=== PATIENT | female | born 1995 | race Caucasian/White ===

== ENCOUNTER 2019-03-08 13:45 | Emergency (ER) | payer OTHER, SELFPAY ==
[2019-03-08 14:56] LABS: Urine Blood NEGATIVE (NEG); Urine Glucose NEGATIVE (NEG); Urine Protein NEGATIVE (NEG); Urine Specific Gravity >1.030 (1.005-1.030)
[2019-03-08] MEDS ORDERED: NA CHLORIDE 0.9% 1,000 ML ONE (15:37)
[2019-03-08] MEDS ORDERED: FENTANYL CITR 100 MCG/2 ML ONE (15:37)
[2019-03-08] MEDS ORDERED: FAMOTIDINE 20 MG/2 ML VIAL IV ONE (15:37)
[2019-03-08] MEDS ORDERED: ONDANSETRON 4 MG/2 ML VIAL ONE (15:37)
[2019-03-08 15:51] LABS: Absolute Lymphocytes (CBC) 2.6 K/uL (0.7-4.9); Basophils % 0.6 % (0-1.3); Hematocrit 40.5 % (36.0-45.0); Lymphocytes % 30.2 % (15.3-44.8); MPV 9.6 fL (7.6-11.3); RBC Red Blood Cell Count 4.81 M/uL (3.86-4.86)
[2019-03-08 16:04] LABS: Albumin 4.2 g/dL (3.4-5.0); Bilirubin Direct 0.1 mg/dL (0-0.2); Bilirubin Total 0.4 mg/dL (0.2-1.0); Potassium 3.9 mmol/L (3.5-5.1); Protein, Total 8.4 g/dL (6.4-8.2)
--- NOTE | 2019-03-08 18:02 | RAD REPORT ---
EXAM DESCRIPTION: CT - Abdomen Pelvis W Contrast - 03/08/2019 5:46 pm CLINICAL HISTORY: Abdominal pain. COMPARISON: None. TECHNIQUE: Computed axial tomography of the abdomen and pelvis was obtained. 100 cc Isovue-300 is ad ministered intravenously. Oral contrast was given. All CT scans are performed using dose optimization technique as appropriate and may include automated exposure control or mA/KV adjustment according to patient size. FINDINGS: The liver, spleen, pancreas, adrenals and kidneys appear unremarkable. The appendix is normal caliber. There is no evidence of diverticulitis The wall of the terminal ileum appears mildly thickened. 2 centimeter left ovarian cyst without signi ficant free fluid Tiny umbilical hernia. Postsurgical changes involve the stomach IMPRESSION: Mild thickening of the wall of the terminal ileum may indicate inflammation 2 centimeter left ovarian cyst without significant free fluid
--- NOTE | 2019-03-08 18:05 | RAD REPORT ---
EXAM DESCRIPTION: US - Abdomen Exam Limited - 03/08/2019 4:01 pm CLINICAL HISTORY: Abdominal pain. COMPARISON: None. FINDINGS: The gallbladder wall is not thickened. A gallstone is not seen. A small amount of gallbla dder sludge The biliary tree is normal caliber. IMPRESSION: Small amount of gallbladder sludge
--- NOTE | 2019-03-08 18:19 | ER ---
Nurse's Notes [facility] Name: Rachell Molina Age: 23 yrs Sex: Female : 1995 Arrival Date: 03/08/2019 Time: 13:46 Bed 20 Private MD: Diagnosis: Abdominal tenderness-BILIARY COLIC;Other and unspecified noninfective gastroenteritis and colitis-RIGHT SIDED MILD COLITIS, CECUM Presentation: 03/08 14:28 Presenting complaint: Patient states: Epigastric pain for the past couple weeks, aj1 reports that the pain has been getting more and more constant. Patient also reports lower abdominal pain and midback pain. Denies N/V/D. Transition of care: patient was not received from another setting of care. Onset of symptoms was January 2019. Risk Assessment: Do you want to hurt yourself or someone else? Patient reports no desire to harm self or others. Initial Sepsis Screen: Does the patient meet any 2 criteria? No. Patient's initial sepsis screen is negative. Does the patient have a suspected source of infection? Yes: Acute abdominal pain. Care prior to arrival: None. 14:28 Method Of Arrival: Ambulatory aj 14:28 Acuity: ELIZABETH 3 aj1 Triage Assessment: 14:29 General: Appears in no apparent distress. comfortable, Behavior is calm, cooperative, aj1 appropriate for age. Pain: Complains of pain in epigastric area, right lower quadrant and left lower quadrant Pain currently is 3 out of 10 on a pain scale. Neuro: Level of Consciousness is awake, alert, obeys commands. Cardiovascular: Patient's skin is warm and dry. Respiratory: Airway is patent Respiratory effort is even, unlabored, Respiratory pattern is regular, symmetrical. GI: Reports lower abdominal pain, upper abdominal pain, Patient currently denies diarrhea, nausea, vomiting. 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 - Social history:: Smoking status: . - Ebola Screening: : Patient denies travel to an Ebola-affected area in the 21 days before illness onset. Screenin:18 Abuse screen: Denies threats or abuse. Nutritional screening: No deficits noted. tw2 Tuberculosis screening: No symptoms or risk factors identified. Fall Risk None identified. Assessment: 14:38 General: Appears in no apparent distress. well groomed, Behavior is calm, cooperative, tw2 appropriate for age. Pain: Complains of pain in epigastric area, right upper quadrant and right lower quadrant. Neuro: Level of Consciousness is awake, alert, obeys commands, Oriented to person, place, time, situation. Cardiovascular: Heart tones S1 S2 Patient's skin is warm and dry. Respiratory: Airway is patent Respiratory effort is even, unlabored, Respiratory pattern is regular, symmetrical, Breath sounds are clear bilaterally. GI: Abdomen is flat, non-distended, Bowel sounds present X 4 quads. Abd is soft X 4 quads Reports lower abdominal pain, upper abdominal pain, nausea. : No signs and/or symptoms were reported regarding the genitourinary system. EENT: No signs and/or symptoms were reported regarding the EENT system. Derm: No signs and/or symptoms reported regarding the dermatologic system. Musculoskeletal: Range of motion: intact in all extremities. 15:19 Reassessment: Dr. Martines at bedside at this time. tw2 16:37 Reassessment: Patient appears in no apparent distress at this time. No changes from tw2 previously documented assessment. Patient and/or family updated on plan of care and expected duration. Pain level reassessed. Patient is alert, oriented x 3, equal unlabored respirations, skin warm/dry/pink. 18:04 Reassessment: Patient appears in no apparent distress at this time. No changes from tw2 previously documented assessment. Patient and/or family updated on plan of care and expected duration. Pain level reassessed. Patient is alert, oriented x 3, equal unlabored respirations, skin warm/dry/pink. Patient states feeling better. Patient states symptoms have improved. 19:08 Reassessment: Patient appears in no apparent distress at this time. Patient and/or cc3 family updated on plan of care and expected duration. Pain level reassessed. Patient is alert, oriented x 3, equal unlabored respirations, skin warm/dry/pink. Received this female patient from morning shift SHIV Jain as a case of epigastric pain, with IV cannula gauge 20 at the right ACV with ongoing IV antibiotic Flagyl 500 mg, for discharge home after the IV antibiotic as endorsed. Patient denies pain at this time. General: Appears in no apparent distress. comfortable, Behavior is calm, cooperative, appropriate for age. Pain: Denies pain. Neuro: Level of Consciousness is awake, alert, obeys commands, Oriented to person, place, time, situation, Appropriate for age. Cardiovascular: Denies chest pain, Capillary refill < 3 seconds Patient's skin is warm and dry. Respiratory: Airway is patent Respiratory effort is even, unlabored, Respiratory pattern is regular, symmetrical. GI: Abdomen is flat, non-distended. : No signs and/or symptoms were reported regarding the genitourinary system. EENT: No signs and/or symptoms were reported regarding the EENT system. Derm: Skin is intact, is healthy with good turgor, Skin is pink, warm \T\ dry. normal. Musculoskeletal: Circulation, motion, and sensation intact. Range of motion: intact in all extremities. 19:35 Reassessment: Patient appears in no apparent distress at this time. Patient and/or cc3 family updated on plan of care and expected duration. Pain level reassessed. Patient is alert, oriented x 3, equal unlabored respirations, skin warm/dry/pink. Dr. Martines discharged the patient home with prescriptions given. IV cannula removed and patient left ER vitally stable and ambulatory. No valuables left in the patient's room. Patient denies pain at this time. Patient states feeling better. Patient states symptoms have improved. Vital Signs: 14:29 BP 138 / 76; Pulse 74; Resp 18; Temp 98.0; Pulse Ox 98% on R/A; Weight 79.83 kg (R); aj1 Height 5 ft. 5 in. (165.10 cm) (R); 16:38 BP 92 / 80; Pulse 67; Resp 17; Pulse Ox 95% on R/A; tw2 17:20 BP 110 / 69; Pulse 53; Resp 17; Pulse Ox 100% on R/A; tw2 18:04 BP 146 / 76; Pulse 82; Resp 17; Pulse Ox 98% on R/A; tw2 19:11 BP 105 / 66; Pulse 61; Resp 16 S; Temp 98.4(O); Pulse Ox 98% on R/A; Pain 0/10; cc3 14:29 Body Mass Index 29.29 (79.83 kg, 165.10 cm) [facility] ED Course: 13:46 Patient arrived in ED. as 14:29 Triage completed. aj1 14:29 Arm band placed on Patient placed in waiting room, Patient notified of wait time. aj1 14:38 Bed in low position. Call light in reach. Adult w/ patient. Pulse ox on. NIBP on. tw2 14:48 Jaylen Martines MD is Attending Physician. [facility] 14:57 Urine --Ancillary (enter results) Sent. [facility] 14:57 Urine Dipstick--Ancillary (enter results) Sent. [facility] 15:15 Susy Candelario, SHIV is Primary Nurse. tw2 15:41 Initial lab(s) drawn, by ky, sent to lab. Inserted saline lock: 20 gauge in right [facility] antecubital area, using aseptic technique. Blood collected. 15:44 Basic Metabolic Panel Sent. [facility] 15:44 CBC with Diff Sent. [facility] 15:44 Creatinine for Radiology Sent. [facility] 15:44 Hepatic Function Sent. [facility] 15:44 Lipase Sent. [facility] 16:02 US Abdomen Limited In Process Unspecified. EDMS 17:47 CT completed. Patient tolerated procedure well. Patient moved to CT. Patient moved back nc from CT. 17:50 CT Abd/Pelvis - PO and IV Contrast In Process Unspecified. EDMI 18:16 Christiano Allen MD is Referral Physician. [facility] 18:17 Una Asencio MD is Referral Physician. [facility] 19:03 Awaiting: completion of IV medication PRIOR to discharge. tw2 19:03 Report given to SHIV Carl - pending completion of IV abx and discontinue iv once tw2 complete. 19:35 No provider procedures requiring assistance completed. IV discontinued, intact, cc3 bleeding controlled, No redness/swelling at site. Pressure dressing applied. Administered Medications: 15:36 Drug: Pepcid 20 mg Route: IVP; Site: right antecubital; tw2 16:39 Follow up: Response: No adverse reaction tw2 15:38 Drug: Zofran 4 mg Route: IVP; Site: right antecubital; tw2 16:39 Follow up: Response: No adverse reaction; Nausea is decreased tw2 15:40 Drug: fentaNYL (PF) 25 mcg Route: IVP; Site: right antecubital; tw2 16:38 Follow up: Response: No adverse reaction; RASS: Alert and Calm (0) tw2 15:42 Drug: NS 0.9% 1000 ml Route: IV; Rate: 1 bolus; Site: right antecubital; tw2 18:42 CANCELLED (Duplicate Order): Cipro 400 mg 200 ml IVPB once over 60 mins jl7 18:51 Drug: Flagyl 500 mg Volume: 100 ml; Route: IVPB; Rate: 200 ml/hr; Infused Over: 30 tw2 mins; Site: right antecubital; 19:30 Follow up: Response: No adverse reaction; IV Status: Completed infusion; IV Intake: cc3 100ml 18:51 Drug: Cipro 500 mg Route: PO; tw2 18:59 Follow up: Response: No adverse reaction tw2 Intake: 19:30 IV: 100ml; Total: 100ml. cc3 Outcome: 18:18 Discharge ordered by MD. sanders 19:35 Discharged to home ambulatory. cc3 19:35 Condition: stable 19:35 Discharge instructions given to patient, Instructed on discharge instructions, follow up and referral plans. medication usage, Demonstrated understanding of instructions, follow-up care, medications, Prescriptions given X 5 19:37 Patient left the ED. cc3 Signatures: Dispatcher [employer] EDMS Sharon Esparza RN RN aj1 Jaylen Martines MD MD cha Martinez, Amelia as Wise, Tara, RN RN tw2 Gio Goins Maria [facility] Meseret Islas cc3 Tila Gil RN jl7
--- NOTE | 2019-03-08 18:19 | EDPHYS ---
Physician Documentation [facility] Name: Rachell Molina Age: 23 yrs Sex: Female : 1995 Arrival Date: 03/08/2019 Time: 13:46 Bed 20 Private MD: ED Physician Jaylen Martines HPI: 03/08 15:25 This 23 yrs old Female presents to ER via Ambulatory with complaints of marilyn Epigastric Pain, Abdominal Pain. 15:25 The patient presents with abdominal pain in the epigastric area, in the upper abdomen, marilyn abdominal distention in the epigastric area. Onset: The symptoms/episode began/occurred 2 day(s) ago. The symptoms do not radiate. Associated signs and symptoms: none. Modifying factors: The symptoms are alleviated by nothing, the symptoms are aggravated by food, movement. Severity of pain: At its worst the pain was mild moderate in the emergency department the pain is unchanged. The patient has not experienced similar symptoms in the past. 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 - Social history:: Smoking status: . - Ebola Screening: : Patient denies travel to an Ebola-affected area in the 21 days before illness onset. ROS: 15:26 Constitutional: Negative for fever, chills, and weight loss, Eyes: Negative for injury, marilyn pain, redness, and discharge, ENT: Negative for injury, pain, and discharge, Neck: Negative for injury, pain, and swelling, Cardiovascular: Negative for chest pain, palpitations, and edema, Respiratory: Negative for shortness of breath, cough, wheezing, and pleuritic chest pain, Back: Negative for injury and pain, : Negative for injury, bleeding, discharge, and swelling, MS/Extremity: Negative for injury and deformity, Skin: Negative for injury, rash, and discoloration, Neuro: Negative for headache, weakness, numbness, tingling, and seizure, Psych: Negative for depression, anxiety, suicide ideation, homicidal ideation, and hallucinations, Allergy/Immunology: Negative for hives, rash, and allergies, Endocrine: Negative for neck swelling, polydipsia, polyuria, polyphagia, and marked weight changes, Hematologic/Lymphatic: Negative for swollen nodes, abnormal bleeding, and unusual bruising. 15:26 Abdomen/GI: Positive for abdominal pain, of the epigastric area, right upper quadrant and left upper quadrant. Exam: 15:26 Constitutional: This is a well developed, well nourished patient who is awake, alert, marilyn and in no acute distress. Head/Face: Normocephalic, atraumatic. Eyes: Pupils equal round and reactive to light, extra-ocular motions intact. Lids and lashes normal. Conjunctiva and sclera are non-icteric and not injected. Cornea within normal limits. Periorbital areas with no swelling, redness, or edema. ENT: Nares patent. No nasal discharge, no septal abnormalities noted. Tympanic membranes are normal and external auditory canals are clear. Oropharynx with no redness, swelling, or masses, exudates, or evidence of obstruction, uvula midline. Mucous membranes moist. Neck: Trachea midline, no thyromegaly or masses palpated, and no cervical lymphadenopathy. Supple, full range of motion without nuchal rigidity, or vertebral point tenderness. No Meningismus. Chest/axilla: Normal chest wall appearance and motion. Nontender with no deformity. No lesions are appreciated. Cardiovascular: Regular rate and rhythm with a normal S1 and S2. No gallops, murmurs, or rubs. Normal PMI, no JVD. No pulse deficits. Respiratory: Lungs have equal breath sounds bilaterally, clear to auscultation and percussion. No rales, rhonchi or wheezes noted. No increased work of breathing, no retractions or nasal flaring. Back: No spinal tenderness. No costovertebral tenderness. Full range of motion. Skin: Warm, dry with normal turgor. Normal color with no rashes, no lesions, and no evidence of cellulitis. MS/ Extremity: Pulses equal, no cyanosis. Neurovascular intact. Full, normal range of motion. Neuro: Awake and alert, GCS 15, oriented to person, place, time, and situation. Cranial nerves II-XII grossly intact. Motor strength 5/5 in all extremities. Sensory grossly intact. Cerebellar exam normal. Normal gait. Psych: Awake, alert, with orientation to person, place and time. Behavior, mood, and affect are within normal limits. 15:26 Abdomen/GI: Inspection: abdomen appears normal, distension, Bowel sounds: normal, Palpation: mild abdominal tenderness, moderate abdominal tenderness, in the epigastric area, right upper quadrant and left upper quadrant. Vital Signs: 14:29 BP 138 / 76; Pulse 74; Resp 18; Temp 98.0; Pulse Ox 98% on R/A; Weight 79.83 kg (R); aj1 Height 5 ft. 5 in. (165.10 cm) (R); 16:38 BP 92 / 80; Pulse 67; Resp 17; Pulse Ox 95% on R/A; tw2 17:20 BP 110 / 69; Pulse 53; Resp 17; Pulse Ox 100% on R/A; tw2 18:04 BP 146 / 76; Pulse 82; Resp 17; Pulse Ox 98% on R/A; tw2 19:11 BP 105 / 66; Pulse 61; Resp 16 S; Temp 98.4(O); Pulse Ox 98% on R/A; Pain 0/10; cc3 14:29 Body Mass Index 29.29 (79.83 kg, 165.10 cm) aj1 MDM: 14:48 Patient medically screened. [facility] 15:27 Data reviewed: vital signs, nurses notes, lab test result(s), radiologic studies. [facility] 03/08 14:51 Order name: Urine Dipstick--Ancillary (enter results); Complete Time: 15:23 03/08 14:51 Order name: Urine --Ancillary (enter results); Complete Time: 15:23 03/08 15:24 Order name: Basic Metabolic Panel; Complete Time: 17:28 [facility] 03/08 15:24 Order name: CBC with Diff; Complete Time: 17:28 [facility] 03/08 15:24 Order name: Creatinine for Radiology; Complete Time: 17:28 [facility] 03/08 15:24 Order name: Hepatic Function; Complete Time: 17:28 [facility] 03/08 15:24 Order name: Lipase; Complete Time: 17:28 [facility] 03/08 15:24 Order name: US Abdomen Limited; Complete Time: 18:12 [facility] 03/08 15:24 Order name: CT Abd/Pelvis - PO and IV Contrast; Complete Time: 18:12 [facility] 03/08 15:24 Order name: IV Saline Lock; Complete Time: 15:42 [facility] 03/08 15:24 Order name: Labs collected and sent; Complete Time: 15:42 marilyn Administered Medications: 15:36 Drug: Pepcid 20 mg Route: IVP; Site: right antecubital; tw2 16:39 Follow up: Response: No adverse reaction tw2 15:38 Drug: Zofran 4 mg Route: IVP; Site: right antecubital; tw2 16:39 Follow up: Response: No adverse reaction; Nausea is decreased tw2 15:40 Drug: fentaNYL (PF) 25 mcg Route: IVP; Site: right antecubital; tw2 16:38 Follow up: Response: No adverse reaction; RASS: Alert and Calm (0) tw2 15:42 Drug: NS 0.9% 1000 ml Route: IV; Rate: 1 bolus; Site: right antecubital; tw2 18:42 CANCELLED (Duplicate Order): Cipro 400 mg 200 ml IVPB once over 60 mins jl7 18:51 Drug: Flagyl 500 mg Volume: 100 ml; Route: IVPB; Rate: 200 ml/hr; Infused Over: 30 tw2 mins; Site: right antecubital; 19:30 Follow up: Response: No adverse reaction; IV Status: Completed infusion; IV Intake: cc3 100ml 18:51 Drug: Cipro 500 mg Route: PO; tw2 18:59 Follow up: Response: No adverse reaction tw2 Disposition: 03/08/19 18:18 Discharged to Home. Impression: Abdominal tenderness - BILIARY COLIC, Other and unspecified noninfective gastroenteritis and colitis - RIGHT SIDED MILD COLITIS, CECUM. - Condition is Stable. - Discharge Instructions: Abdominal Pain, Adult, Biliary Colic, Adult, Abdominal Pain, Adult, [id number], Colitis. - Prescriptions for Bentyl 20 mg Oral Tablet - take 1 tablet by ORAL route every 6 hours As needed; 20 tablet. Flagyl 500 mg Oral Tablet - take 1 tablet by ORAL route every 8 hours for 7 days; 21 tablet. Pepcid 20 mg Oral Tablet - take 1 tablet by ORAL route every 12 hours for 10 days; 20 tablet. Zofran 4 mg Oral Tablet - take 1 tablet by ORAL route every 12 hours As needed; 20 tablet. Cipro 500 mg Oral Tablet - take 1 tablet by ORAL route every 12 hours for 7 days; 14 tablet. - Medication Reconciliation Form, Thank You Letter, Antibiotic Education, Prescription Opioid Use form. - Follow up: Private Physician; When: 2 - 3 days; Reason: Recheck today's complaints, Continuance of care, Re-evaluation by your physician. Follow up: Christiano Allen MD; When: 2 - 3 days; Reason: Recheck today's complaints, Re-evaluation by your physician. Follow up: Una Asencio MD; When: 2 - 3 days; Reason: Recheck today's complaints, Continuance of care, Re-evaluation by your physician. - Problem is new. - Symptoms have improved. Signatures: Dispatcher [employer] EDMS Sharon Esparza RN RN aj1 Jaylen Martines MD MD cha Wise, Tara RN RN tw2 Tila Gil RN RN jl7 Meseret Islas3 Corrections: (The following items were deleted from the chart) 18:42 18:14 Cipro 400 mg 200 ml IVPB once over 60 mins ordered. marilyn monzon 19:37 18:18 03/08/2019 18:18 Discharged to Home. Impression: Abdominal tenderness - BILIARY cc3 COLIC; Other and unspecified noninfective gastroenteritis and colitis - RIGHT SIDED MILD COLITIS, CECUM. Condition is Stable. Forms are Medication Reconciliation Form, Thank You Letter, Antibiotic Education, Prescription Opioid Use. Follow up: Private Physician; When: 2 - 3 days; Reason: Recheck today's complaints, Continuance of care, Re-evaluation by your physician. Follow up: Christiano Allen; When: 2 - 3 days; Reason: Recheck today's complaints, Re-evaluation by your physician. Follow up: Una Asencio; When: 2 - 3 days; Reason: Recheck today's complaints, Continuance of care, Re-evaluation by your physician. Problem is new. Symptoms have improved. marilyn
[2019-03-08] MEDS ORDERED: METRONIDAZOLE 500mg IVPB 500 MG/100 ML BAG IV ONE (18:44)
[2019-03-08] MEDS ORDERED: CIPROFLOXACIN HCL 500 MG TAB ONE (18:44)
[2019-03-08 20:35] VITALS: O2SAT 98
[2019-03-08 20:36] VITALS: BP 105/66; TEMP 98.4
== END 2019-03-08 19:37 | disposition home or self-care (01) ==
LOC: ER 13:45
DX: K52.9 Noninfective gastroenteritis and colitis, unspecified (principal)
CPT/HCPCS: 36415; 74177; 76705; 80048; 80076; 81003; 81025; 83690; 85025; 96365; 96375; 99284; J2405; J3010; J7030; Q9967

== ENCOUNTER 2020-01-23 16:36 | Emergency (ER) | payer OTHER, SELFPAY ==
--- OUTSIDE RECORDS SUMMARY | 2020-01-23 16:38 | XMS REPORT | Continuity of Care Document ---
:1995 Author Organization Formerly [facility] t Address [address] [place] [address] Care Team Providers Name Role Phone Unavailable Unavailable Unavailable Payers Payer Name Policy Type Policy Number Effective Date Expiration Date S ource Problems This patient has no known problems. Allergies, Adverse Reactions, Alerts Allergy Allergy Status Severity Reaction(s) Onset Inactive Treating Comm ents Source Name Type Date Date Clinician No Known DA Active [facility] [place] Medications This patient has no known medications. Procedures This patient has no known procedures. Results Test Description Test Time Test Comments Results Result Comments Source AG HEPATITIS B SURFACE 2020-01-17 09:01:00 Test Item Value Reference Range Interpretation Comme nts AG HEPATITIS B SURFACE (test code = HBSAG) NONREACTIVE NONREACTIVE IS CONSENT FORM SIGNED FOR HIV TESTING? YAB HEPATITIS C [id number] 09:01:00 Test Item Value Reference Range Interpretation Comments AB HEPATITIS C (test code = NONREACTIVE NONREACTIVE HCVAB) SIGNAL TO CUTOFF (test code = 0.04 <0.80 N CUTOFF) IS CONSENT FORM SIGNED FOR HIV TESTING? YAB [id number] 09:01:00 Test Item Value Reference Range Interpretation Comments AB TREPONEMA (test code = TREPAB) NONREACTIVE NONREACTIVE IS CONSENT FORM SIGNED FOR HIV TESTING? YAB HIV 1 09:01:00 Test Item Value Reference Range Interpretation Comments AB HIV 1 2 (test NONREACTIVE NONREACTIVE [facility] = [id number]) 4th Gen HIV Ag/Ab Combo Screen IS CONSENT FORM SIGNED FOR HIV TESTING? YAG HEPATITIS B [id number] 08:54:00 Test Item Value Reference Range Interpretation Comments AG HEPATITIS B SURFACE (test code NONREACTIVE NONREACTIVE = HBSAG) IS CONSENT FORM SIGNED FOR HIV TESTING? YAB HEPATITIS C [id number] 08:54:00 Test Item Value Reference Range Interpretation Comments AB HEPATITIS C (test code = HCVAB) NONREACTIVE SIGNAL TO CUTOFF (test code = CUTOFF) <0.80 IS CONSENT FORM SIGNED FOR HIV TESTING? YAB [id number] 08:54:00 Test Item Value Reference Range Interpretation Comments AB TREPONEMA (test code = TREPAB) NONREACTIVE NONREACTIVE IS CONSENT FORM SIGNED FOR HIV TESTING? YAB HIV 1 08:54:00 Test Item Value Reference Range Interpretation Comments AB HIV 1 2 (test code = [id number]) NONREACTIVE IS CONSENT FORM SIGNED FOR HIV TESTING? YCBC W/AUTO [id number] 07:28:00 Test Item Value Reference Range Interpretation Comments WHITE BLOOD CELL (test code = WBC) 7.8 K/mm3 6.6-12.1 N RED BLOOD CELL (test code = RBC) 3.92 M/mm3 3.45-5.01 N HEMOGLOBIN (test code = HGB) 10.1 g/dL 10.7-13.9 L HEMATOCRIT (test code = HCT) 32.3 % 32.1-42.1 N MEAN CELL VOLUME (test code = MCV) 82 fL 84.1-94.8 L MEAN CELL HGB (test code = MCH) 25.8 pg 27-35 L MEAN CELL HGB CONCETRATION (test 31.3 gm/dL 32.2-34.1 L code = MCHC) RED CELL DISTRIBUTION WIDTH (test 13.4 % 12.4-16.5 N code = RDW) PLATELET COUNT (test code = PLT) 158 K/mm3 133-385 N MEAN PLATELET VOLUME (test code = 12.8 fl 9.1-12.7 H MPV) NEUTROPHIL % (test code = NT%) 63.8 % 56.5-79.4 N LYMPHOCYTE % (test code = LY%) 29.0 % 14.3-34.3 N MONOCYTE % (test code = MO%) 5.0 % 5.1-10.4 L EOSINOPHIL % (test code = EO%) 1.3 % 0.1-3.0 N BASOPHIL % (test code = BA%) 0.5 % 0.1-1.0 N NEUTROPHIL # (test code = NT#) 5.0 K/mm3 LYMPHOCYTE # (test code = LY#) 2.3 K/mm3 MONOCYTE # (test code = MO#) 0.4 K/mm3 EOSINOPHIL # (test code = EO#) 0.10 K/mm3 BASOPHIL # (test code = BA#) 0.0 K/mm3 RBC MORPHOLOGY REQUIRED (test code NORMAL NORMAL = RBCM) PLATELET MORPHOLOGY REQUIRED (test NORMAL NORMAL code = PLTMR) COVID 19 Asymptomatic IH [id number] 12:45:00 Test Item Value Reference Range Interpretation Comments COVID 19 NEGATIVE NEGATIVE This test has b een Asymptomatic IH AG authorize d only for the (test code = detection ofpro teins from COVNONPUIAG) SARS-CoV-2, not for any other viruses orpathogens. N egative results should be treated as presumptive andconfirmed wi th a molecular assay , if necessary for patientmanageme nt. Negative result s do not rule out COVID- 19 andshould not b e used as the sole basis for treatment orpat ient management deci sions, including infec tion controldecision s. Negative result s should be considered i n thecontext of a patient's recent exposure s, history and thepresence of clinical signs and symptoms consis tent withCOVID-19. T his test has not been FD A cleared or approved; th e test hasbeen authori zed by FDA under an Emerge ncy Use Authorization(E UA) for use by laborato stacie certified under the CLIA thatmeet the re quirements to perform mode rate, high or waivedcomple xity tests. This maris t is authorized for use at thePoint of Car e (POC), i.e., in patien t care settingsoperati ng under a CLIA Certificat e of Waiver, Certifi dmitry ofCompliance, o r Certificate of Accreditation. This test is only authori zed for the duration of thedeclaration that circumstances e xist justifying theauthorizatio n of emergency use o f in vitro diagnostic test sfor detection and/o r diagnosis of CO VID-19 under [id number] 4(b)(1) of the Act, 21 U.S .C. 360bbb-3(b)(1), unless theauthorizatio n is terminated or r evoked sooner.
[2020-01-23] MEDS ORDERED: NA CHLORIDE 0.9% 500 ML ONE (17:42)
[2020-01-23 17:47] LABS: Absolute Lymphocytes (CBC) 2.1 K/uL (0.7-4.9); Basophils % 0.7 % (0-1.3); Hematocrit 35.1 % (36.0-45.0); Lymphocytes % 29.5 % (15.3-44.8); MPV 9.6 fL (7.6-11.3); RBC Red Blood Cell Count 4.36 M/uL (3.86-4.86)
[2020-01-23 17:55] LABS: Potassium 3.6 mmol/L (3.5-5.1)
--- NOTE | 2020-01-23 17:56 | RAD REPORT ---
EXAM DESCRIPTION: Jero Single View01/23/2020 5:23 pm CLINICAL HISTORY: Chest pain COMPARISON: 2015 FINDINGS: The lungs appear clear of acute infiltrate. The heart is normal size IMPRESSION: No acute abnormalities displayed
--- NOTE | 2020-01-23 19:03 | RAD REPORT ---
EXAM DESCRIPTION: CT - Chest For Pe Angio - 01/23/2020 6:43 pm CLINICAL HISTORY: Chest pain COMPARISON: 2015 TECHNIQUE: Dynamically enhanced axial 3 mm thick images of the chest were obtained during administra tion of <100> mL Isovue 370 IV contrast. Coronal and oblique reconstruction images were generated and reviewed. Exam utilizes a protocol for optimal evaluation of pulmonary arterial tree. Maximum intensity projections 3D imaging was utilized All CT scans are performed using dose optimization technique as appropriate and may include automated exposure control or mA/KV adjustment according to patient size. FINDINGS: A pulmonary embolus is not seen. A thoracic aortic aneurysm is not noted. A pleural effusion is not seen. A pericardial effusion is not seen. A lung consolidation is not present. IMPRESSION: Negative for a pulmonary embolism.
--- NOTE | 2020-01-23 19:19 | ER ---
Nurse's Notes [facility] Name: Rachell Molina Age: 24 yrs Sex: Female : 1995 Arrival Date: 01/23/2020 Time: 16:37 Bed 19 Private MD: Diagnosis: Chest Pain Presentation: 01/22 16:44 Chief complaint: Patient states: chest pain that feels tight and dizziness that started ss 2 days ago, headache a few days ago, denies fever, dyspnea, N/V, reports having a baby 1 week ago. Coronavirus screen: Patient denies a cough. Ebola Screen: Patient negative for fever greater than or equal to 101.5 degrees Fahrenheit, and additional compatible Ebola Virus Disease symptoms Patient denies exposure to infectious person. Patient denies travel to an Ebola-affected area in the 21 days before illness onset. No symptoms or risks identified at this time. Initial Sepsis Screen: Does the patient meet any 2 criteria? No. Patient's initial sepsis screen is negative. Does the patient have a suspected source of infection? No. Patient's initial sepsis screen is negative. Risk Assessment: Do you want to hurt yourself or someone else?. Risk Assessment: Do you want to hurt yourself or someone else? Patient reports no desire to harm self or others. Onset of symptoms was January 21, 2020. 16:44 Method Of Arrival: Ambulatory ss 16:44 Acuity: ELIZABETH 3 ss Triage Assessment: 17:38 General: Appears in no apparent distress. Behavior is calm, cooperative, appropriate vc for age, flat. Pain: Denies pain. Cardiovascular: Reports fatigue, lightheadedness, Chest Pressure and a sharp pain to lateral side of left breast only with cough. Denies chest pain, shortness of breath. 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 - Social history:: Smoking status: Patient denies any tobacco usage or history of. Screenin:38 Abuse screen: Denies threats or abuse. Nutritional screening: No deficits noted. vc Tuberculosis screening: No symptoms or risk factors identified. Fall Risk None identified. Assessment: 17:00 General: Appears in no apparent distress. uncomfortable, Behavior is calm, cooperative, vc appropriate for age, flat. Pain: Pain radiates to left lateral anterior chest Quality of pain is described as sharp, Pain began 2-3 days ago. Is episodic. Neuro: Level of Consciousness is awake, alert, obeys commands, Oriented to person, place, time, situation, Appropriate for age. Cardiovascular: Capillary refill < 3 seconds Patient's skin is warm and dry. Cardiovascular: Reports fatigue, lightheadedness. Respiratory: Airway is patent Respiratory effort is even, unlabored, Respiratory pattern is regular, symmetrical. GI: No signs and/or symptoms were reported involving the gastrointestinal system. : No signs and/or symptoms were reported regarding the genitourinary system. 18:00 Reassessment: Patient appears in no apparent distress at this time. Patient and/or vc family updated on plan of care and expected duration. Pain level reassessed. Patient is alert, oriented x 3, equal unlabored respirations, skin warm/dry/pink. Patient denies pain at this time. 19:11 General: Appears in no apparent distress. Behavior is calm, cooperative, appropriate wh for age. Pain: Denies pain. Neuro: Level of Consciousness is awake, alert, obeys commands, Oriented to person, place, time, situation, Appropriate for age. Cardiovascular: Heart tones S1 S2. Respiratory: Airway is patent Respiratory effort is even, unlabored, Respiratory pattern is regular, symmetrical, Breath sounds are clear bilaterally. GI: Abdomen is flat, non-distended. : No signs and/or symptoms were reported regarding the genitourinary system. EENT: No signs and/or symptoms were reported regarding the EENT system. Derm: Skin is intact, is healthy with good turgor, Skin is pink, warm \T\ dry. normal. Musculoskeletal: Circulation, motion, and sensation intact. Vital Signs: 16:44 BP 112 / 83; Pulse 77; Resp 16; Temp 98.1(O); Pulse Ox 100% on R/A; Weight 79.38 kg; ss Height 5 ft. 5 in. (165.10 cm); Pain 0/10; 17:22 BP 113 / 75 Supine; Pulse 61; vc 17:24 BP 113 / 80 Sitting; Pulse 82; vc 17:26 BP 119 / 81 Standing; Pulse 98; vc 18:00 BP 131 / 77; Pulse 77; Resp 16; Pulse Ox 99% on R/A; vc 19:11 BP 122 / 75; Pulse 57; Resp 18; Pulse Ox 100% on R/A; 16:44 Body Mass Index 29.12 (79.38 kg, 165.10 cm) ED Course: 16:37 Patient arrived in ED. [facility] 16:38 Harjinder King MD is Attending Physician. kdr 16:47 Triage completed. ss 16:47 Arm band placed on. ss 17:14 Edith Pierre, RN is Primary Nurse. vc 17:20 Inserted saline lock: 20 gauge in right antecubital area, using aseptic technique. vc Blood collected. Patient maintains SpO2 saturation greater than 95% on room air. 17:23 CXR XRAY In Process Unspecified. EDMS 17:39 Allergy band placed. Fall risk band placed. Bed in low position. Call light in reach. vc Pulse ox on. NIBP on. 18:44 CT Chest For PE Angio In Process Unspecified. EDMS 19:04 Attending Physician role handed off by Harjinder King MD [facility] 19:04 Curt Fields MD is Attending Physician. [facility] 19:28 No provider procedures requiring assistance completed. IV discontinued, intact, wh bleeding controlled, No redness/swelling at site. Administered Medications: No medications were administered Outcome: 19:19 Discharge ordered by . [facility] 19:28 Discharged to home ambulatory. 19:28 Condition: stable 19:28 Discharge instructions given to patient, Instructed on discharge instructions, follow up and referral plans. POC Demonstrated understanding of instructions, follow-up care, POC 19:31 Patient left the ED. Signatures: Dispatcher [employer] EDMS Harjinder King MD MD kdr Smirch, Shelby, RN RN Triny Zavaleta Edith Pierre, SHIV RN Sandeep Paz [facility] Curt Fields MD MD [facility]
--- NOTE | 2020-01-23 19:20 | EDPHYS ---
Physician Documentation [facility] Name: Rachell Molina Age: 24 yrs Sex: Female : 1995 Arrival Date: 01/23/2020 Time: 16:37 Bed 19 Private MD: ED Physician Curt Fields HPI: 01/22 18:24 This 24 yrs old Female presents to ER via Ambulatory with complaints of Chest kdr Pain, Dizziness, Headache. 18:24 The patient or guardian reports chest pain that is located primarily in the substernal kdr area, anterior chest wall. The pain radiates to Left axilla. Associated signs and symptoms: Pertinent positives: dizziness, headache, lightheadedness, shortness of breath, The patient is one week with uncomplicated term delivery, Pertinent negatives: syncope, vomiting. The chest pain is described as aching, dull, a pressure. Duration: The patient or guardian reports multiple episodes, that are intermittent, that wax and wane, with no pattern. Modifying factors: The symptoms are alleviated by nothing. the symptoms are aggravated by nothing. Severity of pain: At its worst the pain was mild in the emergency department the pain is unchanged. The patient has not experienced similar symptoms in the past. The patient has been recently seen by a physician: for one week. 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 - Social history:: Smoking status: Patient denies any tobacco usage or history of. ROS: 18:24 Constitutional: Negative for fever, chills, and weight loss, Eyes: Negative for injury, kdr pain, redness, and discharge, ENT: Negative for injury, pain, and discharge, Neck: Negative for injury, pain, and swelling, Abdomen/GI: Negative for abdominal pain, nausea, vomiting, diarrhea, and constipation, Back: Negative for injury and pain, : Negative for injury, bleeding, discharge, and swelling, MS/Extremity: Negative for injury and deformity, Skin: Negative for injury, rash, and discoloration, Psych: Negative for depression, anxiety, suicide ideation, homicidal ideation, and hallucinations, Allergy/Immunology: Negative for hives, rash, and allergies, Endocrine: Negative for neck swelling, polydipsia, polyuria, polyphagia, and marked weight changes, Hematologic/Lymphatic: Negative for swollen nodes, abnormal bleeding, and unusual bruising. 18:24 Cardiovascular: Positive for chest pain, Negative for edema, orthopnea, palpitations, paroxysmal nocturnal dyspnea. 18:24 Respiratory: Positive for shortness of breath, Negative for dyspnea on exertion, hemoptysis, orthopnea, pleurisy. 18:24 Neuro: Positive for dizziness, headache, Negative for numbness, seizure activity, speech changes, syncope, near syncope, visual changes, weakness. Exam: 18:24 Constitutional: This is a well developed, well nourished patient who is awake, alert, kdr and in no acute distress. Head/Face: Normocephalic, atraumatic. Eyes: Pupils equal round and reactive to light, extra-ocular motions intact. Lids and lashes normal. Conjunctiva and sclera are non-icteric and not injected. Cornea within normal limits. Periorbital areas with no swelling, redness, or edema. Neck: Trachea midline, no thyromegaly or masses palpated, and no cervical lymphadenopathy. Supple, full range of motion without nuchal rigidity, or vertebral point tenderness. No Meningismus. Chest/axilla: Normal chest wall appearance and motion. Nontender with no deformity. No lesions are appreciated. Cardiovascular: Regular rate and rhythm with a normal S1 and S2. No gallops, murmurs, or rubs. Normal PMI, no JVD. No pulse deficits. Respiratory: Lungs have equal breath sounds bilaterally, clear to auscultation and percussion. No rales, rhonchi or wheezes noted. No increased work of breathing, no retractions or nasal flaring. Abdomen/GI: Soft, non-tender, with normal bowel sounds. No distension or tympany. No guarding or rebound. No evidence of tenderness throughout. Back: No spinal tenderness. No costovertebral tenderness. Full range of motion. Skin: Warm, dry with normal turgor. Normal color with no rashes, no lesions, and no evidence of cellulitis. MS/ Extremity: Pulses equal, no cyanosis. Neurovascular intact. Full, normal range of motion. Neuro: Awake and alert, GCS 15, oriented to person, place, time, and situation. Cranial nerves II-XII grossly intact. Motor strength 5/5 in all extremities. Sensory grossly intact. Cerebellar exam normal. Normal gait. Psych: Awake, alert, with orientation to person, place and time. Behavior, mood, and affect are within normal limits. Vital Signs: 16:44 BP 112 / 83; Pulse 77; Resp 16; Temp 98.1(O); Pulse Ox 100% on R/A; Weight 79.38 kg; ss Height 5 ft. 5 in. (165.10 cm); Pain 0/10; 17:22 BP 113 / 75 Supine; Pulse 61; vc 17:24 BP 113 / 80 Sitting; Pulse 82; vc 17:26 BP 119 / 81 Standing; Pulse 98; vc 18:00 BP 131 / 77; Pulse 77; Resp 16; Pulse Ox 99% on R/A; vc 19:11 BP 122 / 75; Pulse 57; Resp 18; Pulse Ox 100% on R/A; wh 16:44 Body Mass Index 29.12 (79.38 kg, 165.10 cm) ss MDM: 19:16 Differential diagnosis: acute pericarditis, chest wall pain, myocarditis, pericarditis, mh7 pleurisy, pneumonia, pneumothorax, pulmonary embolus. HEART Score: History:. Data reviewed: vital signs, nurses notes, lab test result(s), CBC, electrolytes, d dimer. Data interpreted: Pulse oximetry: on room air is 100 %. Interpretation: normal. Counseling: I had a detailed discussion with the patient and/or guardian regarding: the historical points, exam findings, and any diagnostic results supporting the discharge/admit diagnosis, lab results, radiology results, the need for outpatient follow up, to return to the emergency department if symptoms worsen or persist or if there are any questions or concerns that arise at home. 19:19 Patient medically screened. [facility] 19:32 Response to treatment: the patient's symptoms have resolved after treatment, the [facility] patient's blood pressure is in an acceptable range, mental status has returned to baseline, the patient no longer shows bradycardia, the patient is not short of breath, the patient is not tachycardic, the patient's pain is gone, the patient's temperature has normalized. ED course: Patient was signed out to me at change of shift to check pending studies and reevaluate for disposition. Patient in NAD, VSS, no focal neurological deficits. No chest pain, SOB, abdominal pain, dizziness, headache, nausea, vomiting, or other complaints. Discussed all test results and findings with the patient and answered all of her questions. She will follow up with her doctor but agreed to return to the ED if worsening of symptoms or other concerns.. 01/22 17:09 Order name: CBC with Diff; Complete Time: 18:03 kdr 01/22 17:09 Order name: Chem 7; Complete Time: 18:03 kdr 01/22 17:09 Order name: CXR XRAY; Complete Time: 18:03 kdr 01/22 17:09 Order name: Orthostatic Blood Pressure; Complete Time: 17:37 kdr 01/22 17:09 Order name: DD; Complete Time: 18:03 kdr 01/22 18:03 Order name: CT Chest For PE Angio; Complete Time: 19:10 kdr 01/22 17:09 Order name: Pulse Ox Sat: Monitor with exertion; Complete Time: 17:37 kdr Administered Medications: No medications were administered Disposition: 01/23/20 19:19 Discharged to Home. Impression: Chest Pain. - Condition is Stable. - Discharge Instructions: Nonspecific Chest Pain, [id number]. - Medication Reconciliation Form, Thank You Letter, Antibiotic Education, Prescription Opioid Use form. - Follow up: Private Physician; When: 1 - 2 days; Reason: Worsening of condition, Recheck today's complaints, Continuance of care, Re-evaluation by your physician. - Problem is new. - Symptoms are resolved. Signatures: Dispatcher [employer] EDMS Harjinder King MD MD kdr Smirch, Shelby, RN RN Triny Heard Curt Fields MD MD [email or web address] Corrections: (The following items were deleted from the chart) 19:31 19:19 01/23/2020 19:19 Discharged to Home. Impression: Chest Pain. Condition is Stable. wh Forms are Medication Reconciliation Form, Thank You Letter, Antibiotic Education, Prescription Opioid Use. Follow up: Private Physician; When: 1 - 2 days; Reason: Worsening of condition, Recheck today's complaints, Continuance of care, Re-evaluation by your physician. Problem is new. Symptoms are resolved. [email or web address]
[2020-01-23 19:58] VITALS: TEMP 98.1
[2020-01-23 20:03] VITALS: BP 122/75; O2SAT 100
== END 2020-01-23 19:31 | disposition home or self-care (01) ==
LOC: ER 16:36
DX: R07.9 Chest pain, unspecified (principal); Z98.84 Bariatric surgery status
CPT/HCPCS: 85025; 80048; 36415; 85379; 71275; 71045; 99284; Q9967; J7040